=== PATIENT | male | born 1950 | race Caucasian/White ===

== ENCOUNTER 2017-08-25 08:33 | Outpatient (CLI) | payer MEDICARE ==
--- NOTE | 2017-08-25 10:47 | CT ---
CT CHEST WITHOUT CONTRAST: Comparison: 05-02-16 History: Bronchiectasis with acute exacerbation. Technique: Noncontrast chest CT is performed in the axial plane. Coronal reformatted images are submi tted for interpretation. FINDINGS: Limited evaluation of the mediastinum due to lack of IV contrast. Calcified mediastinal lymph nodes a re again demonstrated. There are coronary artery calcifications. Heart size is normal. No significant pericardial fluid. The thoracic and abdominal aorta are of normal caliber. No periaortic fat strandi ng. Visualized upper solid organs are grossly unremarkable, with the exception of the left adrenal gland. There is interval development of a 1.5 cm nodule with an attenuation coefficient of 2 Houns[place] uni ts, compatible with a benign adenoma. Trachea and central bronchi are patent. Consolidation with air bronchograms in the right lower lobe i s noted. No suspicious masses. No pleural effusion. No pneumothorax. Minimal scarring in the left devyn g base. Stable sclerotic focus with trabeculation in the thoracic spine at the C6 level compatible with heman gioma. IMPRESSION: 1. Persistent consolidation in the right lower lobe. Given chronicity, area of scarring is favored. 2. Interval development of a benign adenoma of the left adrenal gland. POS: [facility]
== END 2017-08-25 08:34 | disposition home or self-care (01) ==
LOC: SCSCT 08:33
PROVIDERS: ATTEND Family Medicine
DX: J47.1 Bronchiectasis with (acute) exacerbation (principal); D35.02 Benign neoplasm of left adrenal gland; R91.8 Other nonspecific abnormal finding of lung field
CPT/HCPCS: 71250

== ENCOUNTER 2017-11-30 19:30 | Outpatient (CLI) | payer MEDICARE | END 2017-11-30 19:31 | disposition home or self-care (01) | LOC: SLEEPLAB 19:30 | PROVIDERS: ATTEND Family Medicine | DX: G47.33 Obstructive sleep apnea (adult) (pediatric) (principal); R53.83 Other fatigue; I25.10 Atherosclerotic heart disease of native coronary artery without angina pectoris; R06.83 Snoring; I51.9 Heart disease, unspecified; E66.9 Obesity, unspecified; G47.00 Insomnia, unspecified; G47.10 Hypersomnia, unspecified | CPT/HCPCS: 95810 ==

== ENCOUNTER 2017-12-11 20:30 | Outpatient (CLI) | payer MEDICARE | END 2017-12-11 20:31 | disposition home or self-care (01) | LOC: SLEEPLAB 20:30 | PROVIDERS: ATTEND Family Medicine | DX: G47.33 Obstructive sleep apnea (adult) (pediatric) (principal); I25.10 Atherosclerotic heart disease of native coronary artery without angina pectoris; I50.9 Heart failure, unspecified; R06.83 Snoring; E66.9 Obesity, unspecified; Z68.34 Body mass index [BMI] 34.0-34.9, adult | CPT/HCPCS: 95811 ==

== ENCOUNTER 2017-12-25 09:09 | Outpatient (CLI) | payer MEDICARE ==
--- NOTE | 2017-12-25 11:00 | RAD ---
TWO VIEWS CHEST: Comparison: 06-01-15 History: Dyspnea. FINDINGS: Two views of the chest shows a normal sized cardiomediastinal silhouette. There is stable elevation o f the right hemidiaphragm. There is no evidence of consolidation, mass, or pleural effusion. Degenera tive changes are seen in the spine. There are calcified right hilar and mediastinal lymph nodes. IMPRESSION: No evidence of acute cardiopulmonary disease. POS: [facility]
== END 2017-12-25 09:10 | disposition home or self-care (01) ==
LOC: RAD 09:09
PROVIDERS: ATTEND Internal Medicine Critical Care Medicine
DX: R06.00 Dyspnea, unspecified (principal)
CPT/HCPCS: 71046

== ENCOUNTER 2017-12-25 11:53 | Outpatient (CLI) | payer MEDICARE ==
--- NOTE | 2017-12-25 14:32 | NM ---
NUCLEAR MEDICINE VQ SCAN: History: Pulmonary embolism without core pulmonale. Technique: A VQ scan was performed in standard fashion. Ventilation images were obtained using 10.3 m Ci Xenon 133. Perfusion images were obtained using 6 mCi Technetium 99M MAA. FINDINGS: Ventilation: Breath hold, equilibrium, and washout phases are normal. No air trapping is seen. No ventilatory defe cts are present. Perfusion: No small, medium, or large perfusion defects are seen. IMPRESSION: Normal VQ scan. POS: [facility]
== END 2017-12-25 11:54 | disposition home or self-care (01) ==
LOC: NM 11:53
PROVIDERS: ATTEND Internal Medicine Critical Care Medicine
DX: I26.99 Other pulmonary embolism without acute cor pulmonale (principal)
CPT/HCPCS: 78582; A9540; A9558

== ENCOUNTER 2018-11-14 14:22 | Outpatient (CLI) | payer MEDICARE ==
--- NOTE | 2018-11-14 15:56 | MRI ---
MRI CERVICAL SPINE: 11/14/18 Multiplanar and multisequential imaging cervical spine obtained. INDICATIONS: Degenerative cervical disc disease. Neck pain. FINDINGS: The cervical vertebrae maintain normal height and alignment. Vertebral body signal appears normal. Th ere is mild loss of disc space seen at C4-5, C5-6 and C6-7 levels. Very mild degenerative spurring is noted. No significant abnormality at C2-3. C3-4, mild disc bulge with spondylosis flattening the thecal sac; however, the anterior subarachnoid space is preserved. No foraminal stenosis. C4-5, mild disc bulge and spondylosis flatten the thecal sac. Anterior subarachnoid space is preserve d. No cord impingement or significant foraminal stenosis. At C5-6, loss of disc space with degenerative change. Posterior disc bulge and spondylosis flatten th e thecal sac. No cord impingement. There may be mild foraminal encroachment at this level due to unci stacy hypertrophy. At C6-7, there is evidence of a large central disc protrusion which abuts the anterior cord. Bilatera l foraminal stenosis more prominent on the left due to uncinate hypertrophy. The cord signal is normal. No evidence of myelomalacia or edema. IMPRESSION: 1. Prominent disc protrusion with spondylosis at C6-7 impinges on the anterior cord. 2. Mild disc bulge and spondylosis at C3-4, C4-5, and C5-6 as described. POS: [facility]
== END 2018-11-14 14:23 | disposition home or self-care (01) ==
LOC: SCSMRI 14:22
PROVIDERS: ATTEND Nurse Practitioner Family
DX: M50.30 Other cervical disc degeneration, unspecified cervical region (principal); M50.223 Other cervical disc displacement at C6-C7 level; M47.812 Spondylosis without myelopathy or radiculopathy, cervical region
CPT/HCPCS: 72141

== ENCOUNTER 2020-11-23 09:04 | Outpatient (CLI) | payer MEDICARE ==
[2020-11-23 11:15] LABS: #Eosinphils 0.1 10x3/uL (0.0-0.5); #Monocytes 0.7 10x3/uL (0.0-1.1); #Neutrophils 3.3 10x3/uL (1.5-8.4); %Basophils 0.2 % (0.0-2.0); %Eosinophils 2.5 % (0.0-6.0); %Lymphocytes 21.3 % (18.0-47.0); %Monocytes 13.6 % (0.0-10.0); %Neutrophils 62.2 % (40.0-75.0); Hemoglobin 14.5 g/dL (13.5-17.5); Mean Corpuscular HGB CONC 34.5 g/dL (32.0-36.0); Mean Corpuscular Hemoglobin 33.3 pg (27.0-33.0); Mean Corpuscular Volume 96.6 fl (81.2-95.1); Mean Platelet Volume 9.4 fl (7.4-10.4); Platelet Count 219 10x3/uL (150-450); RBC Distribution Width 12.9 % (11.5-14.5); Red Blood Cell (RBC) Count 4.35 10x6/uL (4.32-5.72); White Blood Cell (WBC) Count 5.2 10x3/uL (3.5-10.5)
[2020-11-23 11:25] LABS: Anion Gap 11 mmol/L (10-20); BUN (Urea Nitrogen) 13 mg/dL (8.4-25.7); Calc. Creatinine Clearance 0 mL/min (70-130); Carbon Dioxide 30 mmol/L (23-31); Chloride 98 mmol/L (98-107); Glucose 110 mg/dL (83-110); Potassium 4.7 mmol/L (3.5-5.1); Sodium 134 mmol/L (136-145)
[2020-11-23 18:20] LABS: SARS-CoV-2 PCR by NAA Not Detected (NotDetected)
== END 2020-11-23 09:05 | disposition home or self-care (01) ==
LOC: LABBT 09:04
PROVIDERS: ATTEND Surgery
DX: Z01.818 Encounter for other preprocedural examination (principal); K40.90 Unilateral inguinal hernia, without obstruction or gangrene, not specified as recurrent; Z20.822 Contact with and (suspected) exposure to COVID-19
CPT/HCPCS: 80048; 85025; 93005; U0003; U0005; 87635; 93010

== ENCOUNTER 2020-11-25 09:04 | Day surgery (SDC) | payer MEDICARE ==
[2020-11-24 14:19] VITALS: BMI 29.0
[2020-11-25] MEDS ORDERED: Levofloxacin 500 mg/D5W 100 ml Premix Bag ONE (09:32)
[2020-11-25] MEDS ORDERED: Bupivacaine 0.25% HCL 30 ML VIAL ONE (10:57)
[2020-11-25] MEDS ORDERED: Lidocaine 2% w/Epinephrine 1:200K 20 ML VIAL ONE (10:57)
[2020-11-25] MEDS ORDERED: Calcium Chloride 1 GM/10 ML Abboject SYRINGE ONE (11:10)
[2020-11-25] MEDS ORDERED: PHENYLEPHRINE-NS 100 MCG/ML 10 ML SYRINGE ONE (11:10)
[2020-11-25] MEDS ORDERED: Ketorolac Tromethamine 30 MG/ML VIAL ONE ×2 (11:10→14:28)
[2020-11-25] MEDS ORDERED: PROPOFOL 200 MG/20 ML VIAL ONE (11:10)
[2020-11-25] MEDS ORDERED: Lidocaine 1% PF 5 ML VIAL ONE (11:10)
[2020-11-25] MEDS ORDERED: Glycopyrrolate 0.2 MG/ML 5 ML SYRINGE ONE (11:10)
[2020-11-25] MEDS ORDERED: Dexamethasone 20 MG/5 ML VIAL ONE (11:10)
[2020-11-25] MEDS ORDERED: Fentanyl 100 MCG/2 ML VIAL ONE (11:11)
[2020-11-25] MEDS ORDERED: Famotidine/PF 20 mg/2ml Vial ONE (14:28)
== END 2020-11-25 16:15 | disposition home or self-care (01) ==
LOC: SDC 09:04
PROVIDERS: ATTEND Surgery
PROC: 0YU70JZ Supplement Right Femoral Region with Synthetic Substitute, Open Approach (ICD-10-PCS; principal; 2020-11-25)
DX: K41.31 Unilateral femoral hernia, with obstruction, without gangrene, recurrent (principal); I11.9 Hypertensive heart disease without heart failure; J30.81 Allergic rhinitis due to animal (cat) (dog) hair and dander; Z85.46 Personal history of malignant neoplasm of prostate; Z79.02 Long term (current) use of antithrombotics/antiplatelets; Z79.82 Long term (current) use of aspirin; Z79.899 Other long term (current) drug therapy; Z88.0 Allergy status to penicillin; Z95.5 Presence of coronary angioplasty implant and graft
CPT/HCPCS: C1781; J1100; J1885; J1956; J2704; J3010; S0020; S0028

== ENCOUNTER 2020-11-27 14:35 | Emergency (ER) | payer MEDICARE ==
[2020-11-27] MEDS ORDERED: HYDROcodone/Acetaminophen 5/325 mg Tablet ONE (16:40)
== END 2020-11-27 17:13 | disposition home or self-care (01) ==
LOC: ERS 14:35
DX: T81.31XA Disruption of external operation (surgical) wound, not elsewhere classified, initial encounter (principal); L76.32 Postprocedural hematoma of skin and subcutaneous tissue following other procedure; E78.5 Hyperlipidemia, unspecified; I10 Essential (primary) hypertension
CPT/HCPCS: 99283

== ENCOUNTER 2020-12-01 11:49 | Day surgery (SDC) | payer MEDICARE ==
[2020-11-30 16:02] VITALS: BMI 29.0
[2020-12-01] MEDS ORDERED: Levofloxacin 500 mg/D5W 100 ml Premix Bag ONE (12:18)
[2020-12-01] MEDS ORDERED: Fentanyl 100 MCG/2 ML VIAL ONE (12:29)
[2020-12-01] MEDS ORDERED: PHENYLEPHRINE-NS 100 MCG/ML 10 ML SYRINGE ONE (13:20)
[2020-12-01] MEDS ORDERED: ePHEDrine Sulfate 50 MG/10 ML VIAL ONE (13:20)
[2020-12-01] MEDS ORDERED: Dexamethasone 20 MG/5 ML VIAL ONE (13:20)
[2020-12-01] MEDS ORDERED: Ondansetron PF 4 MG/2 ML Vial ONE (13:20)
[2020-12-01] MEDS ORDERED: PROPOFOL 200 MG/20 ML VIAL ONE (13:20)
[2020-12-01] MEDS ORDERED: Lidocaine 1% PF 5 ML VIAL ONE (13:20)
[2020-12-01] MEDS ORDERED: Bupivacaine PF 0.5% 30 ML VIAL ONE (13:49)
== END 2020-12-01 15:47 | disposition home or self-care (01) ==
LOC: SDC 11:49
PROVIDERS: ATTEND Surgery
PROC: 07L Lymphatic and Hemic Systems, Occlusion (ICD-10-PCS; principal; 2020-12-01)
DX: I89.8 Other specified noninfective disorders of lymphatic vessels and lymph nodes (principal); Z79.02 Long term (current) use of antithrombotics/antiplatelets; Z79.82 Long term (current) use of aspirin; Z79.899 Other long term (current) drug therapy; Z88.0 Allergy status to penicillin; Z88.8 Allergy status to other drugs, medicaments and biological substances
CPT/HCPCS: 87070; 87205; J1100; J1956; J2405; J2704; J3010; S0020

== ENCOUNTER 2021-06-20 18:37 | Inpatient (IN) | payer MEDICARE, OTHER ==
[~2021-06-20 18:37] MED LIST: Iopamidol-370 76% 500 ML 1 ML ONE
[2021-06-20 19:04] LABS: #Eosinphils 0.1 thou/uL (0.0-0.7); #Lymphocytes 0.8 thou/uL (1.20-3.40); #Monocytes 1.4 thou/uL (0.11-0.59); #Neutrophils 14.4 thou/uL (1.40-6.50); %Eosinophils 0.4 % (0.0-10.0); %Lymphocytes 5.1 % (21.0-51.0); %Monocytes 8.3 % (0.0-10.0); %Neutrophils 86.2 % (42.0-75.0); Hemoglobin 16.7 g/dL (14.0-18.0); Mean Corpuscular HGB CONC 35.1 g/dL (32.0-36.0); Mean Corpuscular Hemoglobin 35.1 pg (27.0-31.0); Mean Platelet Volume 6.9 fL (7.4-10.4); Platelet Count 272 thou/uL (130-400); RBC Distribution Width 13.5 % (11.5-14.5); Red Blood Cell (RBC) Count 4.75 mill/uL (4.70-6.10); White Blood Cell (WBC) Count 16.7 thou/uL (4.8-10.8)
[2021-06-20] MEDS ORDERED: Ondansetron PF 4 MG/2 ML Vial ONE ×2 (19:13→21:55)
[2021-06-20] MEDS ORDERED: Morphine 4 MG/ML VIAL ONE (19:13)
[2021-06-20 19:24] LABS: ALT (SGPT) 33 U/L (8-55); AST (SGOT) 32 U/L (5-34); Albumin 4.1 g/dL (3.4-4.8); Alkaline Phosphatase 68 U/L (40-110); Anion Gap 15 mmol/L (10-20); BUN (Urea Nitrogen) 16 mg/dL (8.4-25.7); Bilirubin, Total 1.4 mg/dL (0.2-1.2); Calc. Creatinine Clearance 0 mL/min (70-130); Calcium 9.7 mg/dL (7.8-10.44); Carbon Dioxide 27 mmol/L (23-31); Chloride 94 mmol/L (98-107); Glucose 126 mg/dL (83-110); Protein, Total 7.1 g/dL (5.8-8.1); Sodium 131 mmol/L (136-145)
[2021-06-20] MEDS ORDERED: Succinylcholine 200 MG/10 ml SYRINGE FS ONE (21:55)
[2021-06-20] MEDS ORDERED: Dexamethasone 20 MG/5 ML VIAL ONE (21:55)
[2021-06-20] MEDS ORDERED: Rocuronium Bromide 10 MG/ML (10ML VIAL) ONE (21:55)
[2021-06-20] MEDS ORDERED: PHENYLEPHRINE-NS 100 MCG/ML 10 ML SYRINGE ONE (21:55)
[2021-06-20] MEDS ORDERED: PROPOFOL 200 MG/20 ML VIAL ONE (21:55)
[2021-06-20] MEDS ORDERED: Lidocaine 1% PF 5 ML VIAL ONE (21:55)
[2021-06-20] MEDS ORDERED: Glycopyrrolate 0.2 MG/ML 5 ML SYRINGE ONE (21:55)
[2021-06-20] MEDS ORDERED: ePHEDrine 50 MG/ML VIAL ONE (21:55)
[2021-06-20] MEDS ORDERED: Fentanyl 250 MCG/5 ML VIAL ONE (22:01)
[2021-06-20] MEDS ORDERED: Midazolam HCl 2 mg/2 ml Vial ONE (22:01)
[2021-06-20 22:09] LABS: SARS-CoV-2 NAA Rapid Test Not Detected (NotDetected)
[2021-06-21] MEDS ORDERED: Dextrose 50% Abboject 50 ML SYRINGE SLOW IVP PRN (00:36)
[2021-06-21] MEDS ORDERED: Dextrose 5% in Water 1,000 ML IV PRN (00:36)
[2021-06-21] MEDS ORDERED: hydrALAZINE 20 MG/ML VIAL SLOW IVP PRN (00:36)
[2021-06-21] MEDS ORDERED: Ondansetron PF 4 MG/2 ML Vial IVP PRN (00:36)
[2021-06-21] MEDS ORDERED: Promethazine HCl 25 MG/ML VIAL IM PRN ×2 (00:36→00:49)
[2021-06-21] MEDS ORDERED: Mag-Al 1200 mg/1200 mg/30 ML UDCUP PO PRN (00:36)
[2021-06-21] MEDS ORDERED: Calcium Carbonate 500 MG ChewTAB PO PRN (00:36)
[2021-06-21] MEDS ORDERED: Morphine 4 MG/ML VIAL SLOW IVP PRN (00:45)
[2021-06-21] MEDS ORDERED: Ondansetron HCl/PF 4 MG/2 ML Vial IVP PRN (00:49)
[2021-06-21] MEDS ORDERED: Promethazine HCl 25 MG/ML VIAL IVPB PRN (00:49)
[2021-06-21] MEDS: D5 1/2 NS w/20 mEq KCL 1,000 ML IV SCH ×3 (02:17→18:49)
[2021-06-21] MEDS: HYDROcodone/Acetaminophen 10/325 mg Tablet PO PRN ×2 (02:17→20:57)
[2021-06-21 02:55] VITALS: BMI 27.7
[2021-06-21] MEDS: Ketorolac Tromethamine 30 MG/ML VIAL IVP SCH ×3 (06:07→18:35)
[2021-06-21 06:33] LABS: Hemoglobin 14.8 g/dL (14.0-18.0); Mean Corpuscular HGB CONC 34.7 g/dL (32.0-36.0); Mean Corpuscular Hemoglobin 34.7 pg (27.0-31.0); Mean Platelet Volume 6.9 fL (7.4-10.4); Platelet Count 246 thou/uL (130-400); RBC Distribution Width 13.4 % (11.5-14.5); Red Blood Cell (RBC) Count 4.25 mill/uL (4.70-6.10); White Blood Cell (WBC) Count 13.4 thou/uL (4.8-10.8)
[2021-06-21 06:51] LABS: ALT (SGPT) 27 U/L (8-55); AST (SGOT) 23 U/L (5-34); Albumin 3.4 g/dL (3.4-4.8); Alkaline Phosphatase 51 U/L (40-110); Anion Gap 12 mmol/L (10-20); BUN (Urea Nitrogen) 17 mg/dL (8.4-25.7); Bilirubin, Total 1.1 mg/dL (0.2-1.2); Calc. Creatinine Clearance 98 mL/min (70-130); Calcium 8.3 mg/dL (7.8-10.44); Carbon Dioxide 25 mmol/L (23-31); Chloride 98 mmol/L (98-107); Globulin 2.1 g/dL (2.4-3.5); Glucose 176 mg/dL (83-110); Potassium 5.1 mmol/L (3.5-5.1); Protein, Total 5.5 g/dL (5.8-8.1); Sodium 130 mmol/L (136-145)
[2021-06-21 06:58] LABS: Band 23 % (5-11); Lymphocytes 1 % (21-51); MDiff Complete? YES; Neutrophil 75 % (42-75); Platelet Morphology Comment Appears Adequate; RBC Morphology Normal; Reactive Lymphocytes 1 % (0-10)
[2021-06-21] MEDS: Famotidine 20 MG TAB PO SCH ×2 (08:24→20:54)
[2021-06-21] MEDS: Metoprolol Tartrate 25 MG TAB PO SCH ×2 (08:40→20:54)
[2021-06-21] MEDS: Famotidine/PF 20 mg/2ml Vial SLOW IVP SCH ×2 (08:40→21:01)
[2021-06-21] MEDS: Enoxaparin Sodium 40 MG/0.4 ML SYRINGE SC SCH (10:22)
[2021-06-21] MEDS ORDERED: Polyethylene Glycol 3350 17 GM Packet PO SCH (10:30)
[2021-06-22] MEDS: Ketorolac Tromethamine 30 MG/ML VIAL IVP SCH ×3 (00:13→12:00)
[2021-06-22] MEDS: D5 1/2 NS w/20 mEq KCL 1,000 ML IV SCH ×2 (03:05→11:52)
[2021-06-22] MEDS: Metoprolol Tartrate 25 MG TAB PO SCH (08:17)
[2021-06-22] MEDS: Famotidine 20 MG TAB PO SCH (08:17)
[2021-06-22] MEDS: Enoxaparin Sodium 40 MG/0.4 ML SYRINGE SC SCH (08:37)
[2021-06-22] MEDS ORDERED: Polyethylene Glycol 3350 17 GM Packet PO SCH (09:00)
[2021-06-22] MEDS: Famotidine/PF 20 mg/2ml Vial SLOW IVP SCH (10:28)
[2021-06-22 11:55] VITALS: BP 136/74; TEMP 97.7
== END 2021-06-22 12:54 | disposition home or self-care (01) | DRG 354 ==
LOC: ERS 18:37 → SDC/OP 22:44 → SURG A 06-21 00:36
PROVIDERS: ADMIT Surgery; ATTEND Surgery
PROC: 0WQF0ZZ Repair Abdominal Wall, Open Approach (ICD-10-PCS; principal; 2021-06-20)
DX: K43.0 Incisional hernia with obstruction, without gangrene (principal); K55.9 Vascular disorder of intestine, unspecified; Z20.822 Contact with and (suspected) exposure to COVID-19; K59.00 Constipation, unspecified; E78.5 Hyperlipidemia, unspecified; I10 Essential (primary) hypertension; R63.0 Anorexia; I25.10 Atherosclerotic heart disease of native coronary artery without angina pectoris; Z88.0 Allergy status to penicillin; Z91.048 Other nonmedicinal substance allergy status; Z95.5 Presence of coronary angioplasty implant and graft; Z68.27 Body mass index [BMI] 27.0-27.9, adult; Z85.46 Personal history of malignant neoplasm of prostate
CPT/HCPCS: 36415; 74177; 80053; 83605; 83690; 85025; 96365; 96366; 96375; J1100; J1650; J1885; J1956; J2250; J2270; J2405; J2704; J3010; J3480; J3490; Q9967; S0028; U0002

== ENCOUNTER 2021-07-19 10:10 | Outpatient (CLI) | payer MEDICARE ==
[2020-11-30 16:51] LABS: ALT (SGPT) 39 U/L (8-55); AST (SGOT) 30 U/L (5-34); Albumin 4.2 g/dL (3.4-4.8); Alkaline Phosphatase 60 U/L (40-110); Anion Gap 13 mmol/L (10-20); BUN (Urea Nitrogen) 13 mg/dL (8.4-25.7); Calc. Creatinine Clearance 0 mL/min (70-130); Calcium 9.4 mg/dL (7.8-10.44); Carbon Dioxide 31 mmol/L (23-31); Chloride 95 mmol/L (98-107); Globulin 2.3 g/dL (2.4-3.5); Glucose 115 mg/dL (83-110); Potassium 4.7 mmol/L (3.5-5.1); Protein, Total 6.5 g/dL (5.8-8.1); Sodium 134 mmol/L (136-145)
[2020-11-30 16:55] LABS: #Eosinphils 0.2 10x3/uL (0.0-0.5); #Monocytes 0.8 10x3/uL (0.0-1.1); #Neutrophils 3.7 10x3/uL (1.5-8.4); %Basophils 0.5 % (0.0-2.0); %Eosinophils 2.5 % (0.0-6.0); %Lymphocytes 22.5 % (18.0-47.0); %Monocytes 13.1 % (0.0-10.0); %Neutrophils 61.1 % (40.0-75.0); Hemoglobin 14.3 g/dL (13.5-17.5); Mean Corpuscular HGB CONC 34.8 g/dL (32.0-36.0); Mean Corpuscular Hemoglobin 33.3 pg (27.0-33.0); Mean Corpuscular Volume 95.8 fl (81.2-95.1); Mean Platelet Volume 9.6 fl (7.4-10.4); Platelet Count 277 10x3/uL (150-450); RBC Distribution Width 13.2 % (11.5-14.5); Red Blood Cell (RBC) Count 4.29 10x6/uL (4.32-5.72)
[2020-12-01 02:11] LABS: SARS-CoV-2 PCR by NAA Not Detected (NotDetected)
== END 2021-07-19 10:11 | disposition home or self-care (01) ==
LOC: RAD 10:10
PROVIDERS: ATTEND Internal Medicine Critical Care Medicine
DX: R06.00 Dyspnea, unspecified (principal)
CPT/HCPCS: 71046; 80053; 85025; U0003; U0005

== ENCOUNTER 2021-11-18 07:06 | Inpatient (IN) | payer MEDICARE ==
[2021-11-18] MEDS ORDERED: Fentanyl 100 MCG/2 ML VIAL ONE ×3 (08:36→12:22)
[2021-11-18] MEDS ORDERED: Bupivacaine 0.25% 10 ML VIAL ONE (08:37)
[2021-11-18] MEDS ORDERED: Lidocaine 1% w/Epinephrine 1:100K 30 ML VIAL ONE (08:37)
[2021-11-18] MEDS ORDERED: Levofloxacin 500 mg/D5W 100 ml Premix Bag ONE (08:52)
[2021-11-18] MEDS ORDERED: Dexamethasone 20 MG/5 ML VIAL ONE (08:58)
[2021-11-18] MEDS ORDERED: Lidocaine 1% PF 5 ML VIAL ONE (08:58)
[2021-11-18] MEDS ORDERED: Glycopyrrolate 0.2 MG/ML 5 ML SYRINGE ONE (08:58)
[2021-11-18] MEDS ORDERED: Rocuronium Bromide 10 MG/ML (10ML VIAL) ONE (08:58)
[2021-11-18] MEDS ORDERED: PROPOFOL 200 MG/20 ML VIAL ONE (08:58)
[2021-11-18] MEDS ORDERED: PHENYLEPHRINE-NS 100 MCG/ML 10 ML SYRINGE ONE (08:58)
[2021-11-18] MEDS ORDERED: Ondansetron PF 4 MG/2 ML Vial ONE (08:58)
[2021-11-18] MEDS ORDERED: ePHEDrine 50 MG/ML VIAL ONE (08:58)
[2021-11-18] MEDS ORDERED: Ondansetron PF 4 MG/2 ML Vial IVP PRN ×2 (11:20→12:30)
[2021-11-18] MEDS ORDERED: Promethazine HCl 25 MG/ML VIAL IM PRN ×3 (11:20→12:30)
[2021-11-18] MEDS ORDERED: HYDROmorphone 0.5 MG/0.5 ML SYRINGE ONE ×4 (11:35→12:21)
[2021-11-18] MEDS ORDERED: HYDROmorphone 2 MG/ML VIAL SLOW IVP PRN (11:37)
[2021-11-18] MEDS ORDERED: Ondansetron HCl/PF 4 MG/2 ML Vial IVP PRN (11:37)
[2021-11-18] MEDS ORDERED: Ketorolac Tromethamine 30 MG/ML VIAL IVP PRN (11:37)
[2021-11-18] MEDS ORDERED: ePHEDrine Sulfate 50 MG/10 ML VIAL SLOW IVP PRN (11:37)
[2021-11-18] MEDS ORDERED: Promethazine HCl 25 MG/ML VIAL IVPB PRN (11:37)
[2021-11-18] MEDS ORDERED: diphenhydrAMINE 50 MG/ML VIAL IM/IV PRN (12:30)
[2021-11-18] MEDS ORDERED: Fentanyl CADD 100 ML IVPB SCH (12:30)
[2021-11-18] MEDS ORDERED: diphenhydrAMINE 25 MG CAP PO PRN (12:30)
[2021-11-18] MEDS ORDERED: Naloxone HCl 0.4 mg/ml Vial IV PRN (12:30)
[2021-11-18] MEDS ORDERED: Clindamycin/D5W 900 mg/50 ml Premix Bag ONE (14:17)
[2021-11-18] MEDS: Clindamycin/D5W 900 MG in Premix Bag 1 BAG IVPB SCH ×2 (14:19→17:21)
[2021-11-18 15:17] VITALS: BMI 28.2
[2021-11-18] MEDS: Sodium Chloride 0.9% 1,000 ML IV SCH ×2 (15:35→21:11)
[2021-11-18] MEDS: Famotidine 20 MG TAB PO SCH (21:12)
[2021-11-18] MEDS: Famotidine/PF 20 mg/2ml Vial SLOW IVP SCH (21:12)
[2021-11-19] MEDS: Sodium Chloride 0.9% 1,000 ML IV SCH ×3 (05:16→22:55)
[2021-11-19 05:37] LABS: #Lymphocytes 0.9 thou/uL (1.20-3.40); #Monocytes 1.4 thou/uL (0.11-0.59); #Neutrophils 12.3 thou/uL (1.40-6.50); %Basophils 0.1 % (0.0-1.0); %Eosinophils 0.1 % (0.0-10.0); %Lymphocytes 6.3 % (21.0-51.0); %Monocytes 9.7 % (0.0-10.0); %Neutrophils 83.7 % (42.0-75.0); Hemoglobin 13.9 g/dL (14.0-18.0); Mean Corpuscular HGB CONC 32.7 g/dL (32.0-36.0); Mean Corpuscular Hemoglobin 33.9 pg (27.0-31.0); Platelet Count 222 thou/uL (130-400); Red Blood Cell (RBC) Count 4.09 mill/uL (4.70-6.10); White Blood Cell (WBC) Count 14.7 thou/uL (4.8-10.8)
[2021-11-19 05:53] LABS: Anion Gap 11 mmol/L (10-20); BUN (Urea Nitrogen) 13 mg/dL (8.4-25.7); Calc. Creatinine Clearance 113 mL/min (70-130); Calcium 8.8 mg/dL (7.8-10.44); Carbon Dioxide 29 mmol/L (23-31); Chloride 96 mmol/L (98-107); Glucose 142 mg/dL (83-110); Potassium 5.1 mmol/L (3.5-5.1); Sodium 131 mmol/L (136-145)
[2021-11-19] MEDS: Enoxaparin Sodium 40 MG/0.4 ML SYRINGE SC SCH (09:34)
[2021-11-19] MEDS: Famotidine/PF 20 mg/2ml Vial SLOW IVP SCH ×2 (09:34→20:49)
[2021-11-19] MEDS: Famotidine 20 MG TAB PO SCH ×2 (10:34→20:48)
[2021-11-19] MEDS: Acetaminophen 325 MG TAB PO SCH ×3 (13:13→23:54)
[2021-11-19] MEDS: Zolpidem Tartrate 5 MG TAB PO PRN (20:54)
[2021-11-20] MEDS: Acetaminophen 325 MG TAB PO SCH ×4 (05:04→23:58)
[2021-11-20] MEDS: Sodium Chloride 0.9% 1,000 ML IV SCH ×2 (06:49→14:54)
[2021-11-20] MEDS: Enoxaparin Sodium 40 MG/0.4 ML SYRINGE SC SCH (08:02)
[2021-11-20] MEDS: hydrALAZINE 20 MG/ML VIAL SLOW IVP PRN (08:03)
[2021-11-20] MEDS: Famotidine 20 MG TAB PO SCH ×2 (08:03→21:04)
[2021-11-20] MEDS: Metoprolol Tartrate 25 MG TAB PO SCH ×2 (09:43→21:06)
[2021-11-20] MEDS: Lisinopril 20 MG TAB PO SCH ×2 (09:44→21:10)
[2021-11-20] MEDS: Famotidine/PF 20 mg/2ml Vial SLOW IVP SCH ×2 (09:46→21:06)
[2021-11-20] MEDS ORDERED: Furosemide 20 MG/2 ML VIAL SLOW IVP SCH ×2 (15:30→19:00)
[2021-11-20] MEDS ORDERED: methylPREDNISolone Sod Succ/PF 125 MG/2 ML VIAL IVP SCH (15:30)
[2021-11-20] MEDS ORDERED: Sodium Chloride 0.9% 1,000 ML IV SCH (15:31)
[2021-11-20] MEDS ORDERED: Magnesium 2 GM/50 ML(in water) 2 GM in Premix Bag 1 BAG IVPB SCH (15:45)
[2021-11-20] MEDS ORDERED: guaiFENesin/DM ER PO SCH (15:45)
[2021-11-20 15:58] LABS: #Eosinphils 0.1 thou/uL (0.0-0.7); #Monocytes 1.3 thou/uL (0.11-0.59); #Neutrophils 9.5 thou/uL (1.40-6.50); %Basophils 0.2 % (0.0-1.0); %Lymphocytes 8.1 % (21.0-51.0); %Neutrophils 79.7 % (42.0-75.0); Hemoglobin 14.5 g/dL (14.0-18.0); Mean Corpuscular HGB CONC 31.8 g/dL (32.0-36.0); Mean Corpuscular Hemoglobin 33.2 pg (27.0-31.0); Platelet Count 226 thou/uL (130-400); RBC Distribution Width 13.1 % (11.5-14.5); Red Blood Cell (RBC) Count 4.38 mill/uL (4.70-6.10); White Blood Cell (WBC) Count 11.9 thou/uL (4.8-10.8)
[2021-11-20] MEDS: rOPINIRole HCl 0.5 MG TAB PO PRN (17:45)
[2021-11-20] MEDS: Mometasone 200 MCG/Formoterol 5 MCG 120 PUFF INHALER INH SCH (20:16)
[2021-11-20] MEDS: Atorvastatin Calcium 40 MG TAB PO SCH (21:04)
[2021-11-20] MEDS: Zolpidem Tartrate 5 MG TAB PO PRN (21:09)
[2021-11-20] MEDS: guaiFENesin/DM ER PO SCH (21:10)
[2021-11-21] MEDS: Acetaminophen 325 MG TAB PO SCH ×3 (05:28→17:13)
[2021-11-21] MEDS: Furosemide 20 MG/2 ML VIAL SLOW IVP SCH ×2 (05:29→14:53)
[2021-11-21] MEDS: hydrALAZINE 20 MG/ML VIAL SLOW IVP PRN (05:29)
[2021-11-21 06:10] LABS: #Lymphocytes 0.5 thou/uL (1.20-3.40); #Monocytes 0.3 thou/uL (0.11-0.59); #Neutrophils 6.2 thou/uL (1.40-6.50); %Eosinophils 0.2 % (0.0-10.0); %Lymphocytes 7.1 % (21.0-51.0); %Monocytes 4.1 % (0.0-10.0); %Neutrophils 88.6 % (42.0-75.0); Hemoglobin 15.1 g/dL (14.0-18.0); Mean Corpuscular HGB CONC 32.3 g/dL (32.0-36.0); Mean Corpuscular Hemoglobin 33.4 pg (27.0-31.0); Mean Platelet Volume 7.2 fL (7.4-10.4); Platelet Count 259 thou/uL (130-400); RBC Distribution Width 13.1 % (11.5-14.5); Red Blood Cell (RBC) Count 4.52 mill/uL (4.70-6.10)
[2021-11-21 06:27] LABS: ALT (SGPT) 31 U/L (8-55); AST (SGOT) 27 U/L (5-34); Albumin 3.9 g/dL (3.4-4.8); Alkaline Phosphatase 49 U/L (40-110); Anion Gap 16 mmol/L (10-20); BUN (Urea Nitrogen) 15 mg/dL (8.4-25.7); Bilirubin, Total 1.1 mg/dL (0.2-1.2); Calc. Creatinine Clearance 109 mL/min (70-130); Calcium 9.5 mg/dL (7.8-10.44); Carbon Dioxide 25 mmol/L (23-31); Chloride 96 mmol/L (98-107); Globulin 3.2 g/dL (2.4-3.5); Glucose 158 mg/dL (83-110); Magnesium 2.2 mg/dL (1.6-2.6); Potassium 4.8 mmol/L (3.5-5.1); Protein, Total 7.1 g/dL (5.8-8.1); Sodium 132 mmol/L (136-145)
[2021-11-21] MEDS: Mometasone 200 MCG/Formoterol 5 MCG 120 PUFF INHALER INH SCH ×2 (07:12→19:37)
[2021-11-21] MEDS: rOPINIRole HCl 0.5 MG TAB PO PRN ×2 (09:08→21:13)
[2021-11-21] MEDS: Famotidine/PF 20 mg/2ml Vial SLOW IVP SCH ×2 (09:09→21:11)
[2021-11-21] MEDS: Famotidine 20 MG TAB PO SCH (09:12)
[2021-11-21] MEDS: guaiFENesin/DM ER PO SCH ×2 (09:13→21:20)
[2021-11-21] MEDS: Lisinopril 20 MG TAB PO SCH ×2 (09:13→21:14)
[2021-11-21] MEDS: Metoprolol Tartrate 25 MG TAB PO SCH ×2 (09:15→21:13)
[2021-11-21 09:27] LABS: Actual Bicarbonate (HCO3a) 25.9 mEq/L (22-28); Base Excess (BEa) 1.7 mEq/L (-2.0 to +3.0); CO2 Tension 39.5 mmHg (35.0-45.0); Calcium, Ionized (arterial) 1.19 mmol/L (1.12-1.30); Hemoglobin (Hb) 15.5 g/dL (14.0-18.0); Potassium - ABG Lab 4.07 mmol/L (3.70-5.30); pH, Arterial 7.44 (7.35-7.45)
[2021-11-21 09:34] LABS: ALV-art Gradient 95.465 mmHg (0-20); O2 Tension (PaO2), arterial 54.8 mmHg (> 70.0); Puncture Site RRA
[2021-11-21] MEDS ORDERED: Iopamidol-370 76% 500 ML 1 ML ONE (10:25)
[2021-11-21] MEDS: Enoxaparin Sodium 40 MG/0.4 ML SYRINGE SC SCH (11:01)
[2021-11-21] MEDS: Bisacodyl 10 MG SUPP PR PRN (11:04)
[2021-11-21] MEDS: Atorvastatin Calcium 40 MG TAB PO SCH (21:13)
[2021-11-21] MEDS: Zolpidem Tartrate 5 MG TAB PO PRN (22:33)
[2021-11-22] MEDS: Acetaminophen 325 MG TAB PO SCH ×4 (00:30→17:45)
[2021-11-22] MEDS: Bisacodyl 10 MG SUPP PR PRN (04:04)
[2021-11-22] MEDS: Furosemide 20 MG/2 ML VIAL SLOW IVP SCH (05:19)
[2021-11-22] MEDS: rOPINIRole HCl 0.5 MG TAB PO PRN (05:40)
[2021-11-22 06:08] LABS: #Monocytes 2.2 thou/uL (0.11-0.59); #Neutrophils 13.8 thou/uL (1.40-6.50); %Basophils 0.1 % (0.0-1.0); %Eosinophils 0.3 % (0.0-10.0); %Lymphocytes 5.7 % (21.0-51.0); %Monocytes 12.9 % (0.0-10.0); Hemoglobin 15.1 g/dL (14.0-18.0); Mean Corpuscular HGB CONC 34.4 g/dL (32.0-36.0); Mean Corpuscular Hemoglobin 35.5 pg (27.0-31.0); Platelet Count 253 thou/uL (130-400); Red Blood Cell (RBC) Count 4.25 mill/uL (4.70-6.10)
[2021-11-22 06:30] LABS: Anion Gap 15 mmol/L (10-20); BUN (Urea Nitrogen) 19 mg/dL (8.4-25.7); Calc. Creatinine Clearance 116 mL/min (70-130); Calcium 9.1 mg/dL (7.8-10.44); Carbon Dioxide 27 mmol/L (23-31); Chloride 96 mmol/L (98-107); Glucose 127 mg/dL (83-110); Sodium 134 mmol/L (136-145)
[2021-11-22] MEDS: Mometasone 200 MCG/Formoterol 5 MCG 120 PUFF INHALER INH SCH ×2 (06:57→19:08)
[2021-11-22] MEDS: Enoxaparin Sodium 40 MG/0.4 ML SYRINGE SC SCH (08:58)
[2021-11-22] MEDS: Famotidine/PF 20 mg/2ml Vial SLOW IVP SCH ×2 (08:58→21:09)
[2021-11-22] MEDS: Lisinopril 20 MG TAB PO SCH ×2 (08:59→21:10)
[2021-11-22] MEDS: Metoprolol Tartrate 25 MG TAB PO SCH ×2 (08:59→21:11)
[2021-11-22] MEDS: guaiFENesin/DM ER PO SCH ×2 (09:01→21:12)
[2021-11-22] MEDS: Atorvastatin Calcium 40 MG TAB PO SCH (21:10)
[2021-11-22] MEDS: Zolpidem Tartrate 5 MG TAB PO PRN (22:16)
[2021-11-23] MEDS: Acetaminophen 325 MG TAB PO SCH ×5 (01:39→23:53)
[2021-11-23 06:30] LABS: #Eosinphils 0.2 thou/uL (0.0-0.7); #Lymphocytes 0.8 thou/uL (1.20-3.40); #Monocytes 1.1 thou/uL (0.11-0.59); #Neutrophils 6.1 thou/uL (1.40-6.50); %Basophils 0.3 % (0.0-1.0); %Eosinophils 2.4 % (0.0-10.0); %Lymphocytes 9.5 % (21.0-51.0); %Monocytes 13.7 % (0.0-10.0); %Neutrophils 74.1 % (42.0-75.0); Hemoglobin 13.9 g/dL (14.0-18.0); Mean Corpuscular HGB CONC 32.7 g/dL (32.0-36.0); Mean Corpuscular Hemoglobin 34.1 pg (27.0-31.0); Mean Platelet Volume 6.8 fL (7.4-10.4); Platelet Count 212 thou/uL (130-400); Red Blood Cell (RBC) Count 4.07 mill/uL (4.70-6.10); White Blood Cell (WBC) Count 8.3 thou/uL (4.8-10.8)
[2021-11-23 06:48] LABS: Anion Gap 11 mmol/L (10-20); BUN (Urea Nitrogen) 17 mg/dL (8.4-25.7); Calc. Creatinine Clearance 122 mL/min (70-130); Calcium 8.6 mg/dL (7.8-10.44); Carbon Dioxide 33 mmol/L (23-31); Chloride 97 mmol/L (98-107); Glucose 96 mg/dL (83-110); Potassium 4.5 mmol/L (3.5-5.1); Sodium 136 mmol/L (136-145)
[2021-11-23] MEDS: Mometasone 200 MCG/Formoterol 5 MCG 120 PUFF INHALER INH SCH ×2 (07:11→19:06)
[2021-11-23] MEDS ORDERED: Morphine 4 MG/ML VIAL SLOW IVP PRN ×2 (08:09)
[2021-11-23] MEDS ORDERED: DC PCA Order Set 1 EACH FS ONE (08:09)
[2021-11-23] MEDS: Famotidine/PF 20 mg/2ml Vial SLOW IVP SCH (08:39)
[2021-11-23] MEDS: Lisinopril 20 MG TAB PO SCH ×2 (08:39→21:31)
[2021-11-23] MEDS: Enoxaparin Sodium 40 MG/0.4 ML SYRINGE SC SCH (08:40)
[2021-11-23] MEDS: Metoprolol Tartrate 25 MG TAB PO SCH ×2 (08:40→21:29)
[2021-11-23] MEDS: guaiFENesin/DM ER PO SCH ×2 (08:41→21:32)
[2021-11-23] MEDS: Famotidine 20 MG TAB PO SCH ×2 (08:42→21:30)
[2021-11-23] MEDS: Atorvastatin Calcium 40 MG TAB PO SCH (21:31)
[2021-11-23] MEDS: rOPINIRole HCl 0.5 MG TAB PO PRN (21:53)
[2021-11-24] MEDS: Famotidine/PF 20 mg/2ml Vial SLOW IVP SCH ×2 (00:54→08:20)
[2021-11-24] MEDS: Acetaminophen 325 MG TAB PO SCH ×2 (05:33→12:35)
[2021-11-24] MEDS: Famotidine 20 MG TAB PO SCH (08:20)
[2021-11-24] MEDS: Enoxaparin Sodium 40 MG/0.4 ML SYRINGE SC SCH (08:20)
[2021-11-24] MEDS: Metoprolol Tartrate 25 MG TAB PO SCH (08:21)
[2021-11-24] MEDS: Lisinopril 20 MG TAB PO SCH (08:21)
[2021-11-24] MEDS: guaiFENesin/DM ER PO SCH (08:24)
[2021-11-24] MEDS: Mometasone 200 MCG/Formoterol 5 MCG 120 PUFF INHALER INH SCH (10:44)
[2021-11-24 13:35] VITALS: TEMP 98
[2021-11-24] MEDS: hydrALAZINE 20 MG/ML VIAL SLOW IVP PRN (16:56)
[2021-11-24 17:30] VITALS: BP 158/80
== END 2021-11-24 17:50 | disposition home or self-care (01) | DRG 353 ==
LOC: SDC 07:06 → SURG A 11:21
PROVIDERS: ADMIT Surgery; ATTEND Surgery
PROC: 0WUF0JZ Supplement Abdominal Wall with Synthetic Substitute, Open Approach (ICD-10-PCS; principal; 2021-11-18)
PROC: 0WJF4ZZ Inspection of Abdominal Wall, Percutaneous Endoscopic Approach (ICD-10-PCS; 2021-11-18)
DX: K43.2 Incisional hernia without obstruction or gangrene (principal); J96.01 Acute respiratory failure with hypoxia; I50.31 Acute diastolic (congestive) heart failure; E87.1 Hypo-osmolality and hyponatremia; K56.7 Ileus, unspecified; J98.11 Atelectasis; K91.89 Other postprocedural complications and disorders of digestive system; Z20.822 Contact with and (suspected) exposure to COVID-19; I11.0 Hypertensive heart disease with heart failure; Z95.5 Presence of coronary angioplasty implant and graft; Z85.46 Personal history of malignant neoplasm of prostate; Z79.899 Other long term (current) drug therapy; Z88.0 Allergy status to penicillin; Z88.8 Allergy status to other drugs, medicaments and biological substances; R33.9 Retention of urine, unspecified; Z01.812 Encounter for preprocedural laboratory examination
CPT/HCPCS: 36415; 36600; 71045; 71275; 74018; 80048; 80053; 82805; 83735; 83880; 85025; 93005; 93010; 93306; 94640; 94664; C1781; J0360; J1100; J1170; J1650; J1940; J1956; J2405; J2704; J2930; J3010; J3475; J3490; J7050; J7620; Q9967; S0020; S0028; U0003; U0005

== ENCOUNTER 2023-04-12 10:35 | Outpatient (CLI) | payer MEDICARE ==
[2023-04-12 11:26] LABS: #Eosinphils 0.1 10x3/uL (0.0-0.5); #Monocytes 0.9 10x3/uL (0.0-1.1); #Neutrophils 4.1 10x3/uL (1.5-8.4); %Basophils 0.3 % (0.0-2.0); %Eosinophils 1.6 % (0.0-6.0); %Lymphocytes 23.6 % (18.0-47.0); %Monocytes 13.8 % (0.0-10.0); %Neutrophils 60.6 % (40.0-75.0); Hematocrit 40.7 % (38.8-50.0); Hemoglobin 14.1 g/dL (13.5-17.5); Mean Corpuscular HGB CONC 34.6 g/dL (32.0-36.0); Mean Corpuscular Hemoglobin 33.6 pg (27.0-33.0); Mean Corpuscular Volume 96.9 fl (81.2-95.1); Mean Platelet Volume 9.5 fl (7.4-10.4); Platelet Count 186 10x3/uL (150-450); RBC Distribution Width 13.6 % (11.5-14.5); White Blood Cell (WBC) Count 6.8 10x3/uL (3.5-10.5)
[2023-04-12 11:53] LABS: ALT (SGPT) 35 U/L (8-55); AST (SGOT) 29 U/L (5-34); Albumin 4.1 g/dL (3.4-4.8); Alkaline Phosphatase 58 U/L (40-110); Anion Gap 15 mmol/L (10-20); BUN (Urea Nitrogen) 21 mg/dL (8.4-25.7); Bilirubin, Total 0.8 mg/dL (0.2-1.2); Calc. Creatinine Clearance 0 mL/min (70-130); Calcium 9.4 mg/dL (7.8-10.44); Carbon Dioxide 26 mmol/L (23-31); Chloride 99 mmol/L (98-107); Estimated GFR 77; Globulin 2.2 g/dL (2.4-3.5); Glucose 104 mg/dL (83-110); Potassium 4.9 mmol/L (3.5-5.1); Protein, Total 6.3 g/dL (5.8-8.1); Sodium 135 mmol/L (136-145)
== END 2023-04-12 10:36 | disposition home or self-care (01) ==
LOC: LABBT 10:35
PROVIDERS: ATTEND Surgery
DX: Z01.812 Encounter for preprocedural laboratory examination (principal); K43.2 Incisional hernia without obstruction or gangrene
CPT/HCPCS: 80053; 85025

== ENCOUNTER 2023-04-14 07:03 | Observation (INO) | payer MEDICARE ==
[2023-04-12 11:18] VITALS: BMI 27.1
[2023-04-14] MEDS ORDERED: LevoFLOXacin 500 mg/D5W 100 ML BAG ONE (07:54)
[2023-04-14] MEDS ORDERED: Lidocaine 1% MPF 2 ML VIAL ONE (07:54)
[2023-04-14] MEDS ORDERED: fentaNYL PF 100 MCG/2 ML SYRINGE ONE (08:30)
[2023-04-14] MEDS ORDERED: Bupivacaine 0.25% HCL 30 ML VIAL ONE (08:32)
[2023-04-14] MEDS ORDERED: Lidocaine 2% PF 5 ML VIAL ONE ×2 (08:32)
[2023-04-14] MEDS ORDERED: EPINEPHrine 1 MG/ML AMP ONE (08:32)
[2023-04-14] MEDS ORDERED: SUGAMMADEX SODIUM 200 MG/2 ML VIAL ONE (09:13)
[2023-04-14] MEDS ORDERED: Lidocaine 1% PF 5 ML VIAL ONE (09:45)
[2023-04-14] MEDS ORDERED: Glycopyrrolate 0.2 MG/ML 5 ML SYRINGE ONE (09:45)
[2023-04-14] MEDS ORDERED: Ondansetron PF 4 MG/2 ML Vial ONE (09:45)
[2023-04-14] MEDS ORDERED: PROPOFOL 200 MG/20 ML VIAL ONE (09:45)
[2023-04-14] MEDS ORDERED: Dexamethasone 20 MG/5 ML VIAL ONE (09:45)
[2023-04-14] MEDS ORDERED: Bupivacaine PF 0.5% 30 ML VIAL ONE (09:45)
[2023-04-14] MEDS ORDERED: ePHEDrine Sulfate 50 MG/10 ML VIAL ONE (09:45)
[2023-04-14] MEDS ORDERED: Rocuronium Bromide 10 MG/ML (10ML VIAL) ONE (09:45)
[2023-04-14] MEDS ORDERED: Vasopressin 20 UNITS/ML VIAL ONE (10:01)
[2023-04-14] MEDS ORDERED: Ondansetron PF 4 MG/2 ML Vial IVP PRN ×2 (13:21→14:00)
[2023-04-14] MEDS ORDERED: Promethazine HCl 25 MG/ML VIAL IM PRN (13:21)
[2023-04-14] MEDS ORDERED: Calcium Carbonate 500 MG ChewTAB PO PRN (13:21)
[2023-04-14] MEDS ORDERED: Dextrose 5% in Water 1,000 ML IV PRN (13:21)
[2023-04-14] MEDS ORDERED: hydrALAZINE 20 MG/ML VIAL SLOW IVP PRN (13:21)
[2023-04-14] MEDS ORDERED: Glucagon 1 MG/ML KIT IM PRN (13:21)
[2023-04-14] MEDS ORDERED: Ipratropium/Albuterol 3 ML NEB NEB PRN (13:21)
[2023-04-14] MEDS ORDERED: Mag-Al 1200 mg/1200 mg/30 ML UDCUP PO PRN (13:21)
[2023-04-14] MEDS ORDERED: Dextrose 50% Abboject 50 ML SYRINGE SLOW IVP PRN (13:21)
[2023-04-14] MEDS ORDERED: Sodium Chloride 0.9% 1,000 ML IV SCH (13:30)
[2023-04-14] MEDS ORDERED: fentaNYL 50 mcg/mL 1 mL Vial ONE (13:41)
[2023-04-14] MEDS ORDERED: Ketorolac Tromethamine 30 MG/ML VIAL IVP SCH ×2 (13:45→18:00)
[2023-04-14] MEDS ORDERED: Naloxone HCl 0.4 mg/ml Vial IV PRN (14:00)
[2023-04-14] MEDS ORDERED: Morphine Sulfate 100 MG in Dextrose 5% in Water 98 ML IV SCH (14:00)
[2023-04-14] MEDS: Ketorolac Tromethamine 30 MG/ML VIAL IVP SCH (18:02)
[2023-04-14] MEDS: Famotidine 20 MG TAB PO SCH (20:16)
[2023-04-14] MEDS ORDERED: Famotidine/PF 20 mg/2ml Vial SLOW IVP SCH (21:00)
[2023-04-15] MEDS: Ketorolac Tromethamine 30 MG/ML VIAL IVP SCH ×2 (00:28→05:36)
[2023-04-15 04:45] VITALS: TEMP 98.1
[2023-04-15 06:54] LABS: #Monocytes 1.2 thou/uL (0.11-0.59); #Neutrophils 13.7 thou/uL (1.40-6.50); %Basophils 0.1 % (0.0-1.0); %Lymphocytes 5.4 % (21.0-51.0); %Monocytes 7.6 % (0.0-10.0); %Neutrophils 86.5 % (42.0-75.0); Hematocrit 42.2 % (42.0-52.0); Hemoglobin 14.2 g/dL (14.0-18.0); Mean Corpuscular HGB CONC 33.6 g/dL (32.0-36.0); Mean Corpuscular Hemoglobin 33.6 pg (27.0-31.0); Mean Corpuscular Volume 99.8 fl (78.0-98.0); Mean Platelet Volume 9.8 fL (7.4-10.4); Platelet Count 167 10x3/uL (130-400); RBC Distribution Width 13.5 % (11.5-14.5); Red Blood Cell (RBC) Count 4.23 mill/uL (4.70-6.10); White Blood Cell (WBC) Count 15.8 10x3/uL (4.8-10.8)
[2023-04-15 08:00] VITALS: BP 124/62
[2023-04-15] MEDS ORDERED: Morphine 4 MG/ML VIAL SLOW IVP PRN (08:28)
[2023-04-15] MEDS ORDERED: HYDROcodone/Acetaminophen 7.5/325 mg Tablet PO PRN (08:28)
[2023-04-15] MEDS: Famotidine 20 MG TAB PO SCH (10:00)
== END 2023-04-15 11:10 | disposition home or self-care (01) ==
LOC: SDC 07:03 → SURG A 15:30
PROVIDERS: ADMIT Surgery; ATTEND Surgery
PROC: 0WUF0JZ Supplement Abdominal Wall with Synthetic Substitute, Open Approach (ICD-10-PCS; principal; 2023-04-14)
DX: K43.2 Incisional hernia without obstruction or gangrene (principal); H91.90 Unspecified hearing loss, unspecified ear; C61 Malignant neoplasm of prostate; J30.81 Allergic rhinitis due to animal (cat) (dog) hair and dander; Z79.899 Other long term (current) drug therapy; Z88.0 Allergy status to penicillin
CPT/HCPCS: 49593; 85025; 93005; J3010; 36415; 93010; C1781; J0171; J1100; J1650; J1885; J1956; J2001; J2270; J2405; J2704; J7050; J7070; S0020

== ENCOUNTER 2023-06-01 06:30 | Day surgery (SDC) | payer MEDICARE ==
[2023-05-31 14:20] VITALS: BMI 26.0
[~2023-06-01 06:30] MED LIST changes: +Fluorouracil 100 MG, Enoxaparin 25 MG, EPINEPHrine 0.3 MG in Ophthalmic Irrigation Solu... IRR SCH; -Iopamidol-370 76% 500 ML 1 ML ONE
[2023-06-01] MEDS ORDERED: PHENYLephrine 2.5% Ophth Soln 15 ml Bottle ONE (06:42)
[2023-06-01] MEDS ORDERED: Cyclopentolate 1% Opth Drop 2 ML BOT ONE (06:42)
[2023-06-01] MEDS ORDERED: fentaNYL 50 mcg/mL 1 mL Vial ONE (06:43)
[2023-06-01] MEDS ORDERED: Midazolam HCl 2 mg/2 ml Vial ONE (06:43)
[2023-06-01] MEDS ORDERED: PHENYLEPHRINE-NS 100 MCG/ML 10 ML SYRINGE ONE (07:14)
[2023-06-01] MEDS ORDERED: Maxitrol 0.1% Opth Oint 3.5 GM TUBE ONE (07:14)
[2023-06-01] MEDS ORDERED: Ondansetron PF 4 MG/2 ML Vial ONE (07:14)
[2023-06-01] MEDS ORDERED: Lidocaine 4% PF 5 ML AMP ONE (07:14)
[2023-06-01] MEDS ORDERED: Indocyanine Green 25 MG/10 ML VIAL ONE (07:14)
[2023-06-01] MEDS ORDERED: PROPOFOL 200 MG/20 ML VIAL ONE (07:14)
[2023-06-01] MEDS ORDERED: Bupivacaine 0.75% 10 ML VIAL ONE (07:14)
[2023-06-01] MEDS ORDERED: Lidocaine 1% PF 5 ML VIAL ONE (07:14)
[2023-06-01] MEDS ORDERED: Glycopyrrolate 0.2 MG/ML 5 ML SYRINGE ONE (07:14)
[2023-06-01] MEDS ORDERED: CEFAZOLIN 1 GM VIAL ONE (07:14)
[2023-06-01] MEDS ORDERED: ePHEDrine Sulfate 50 MG/10 ML VIAL ONE (07:14)
[2023-06-01] MEDS ORDERED: Triamcinolone 40 MG/ML VIAL ONE (07:14)
== END 2023-06-01 10:10 | disposition home or self-care (01) ==
LOC: SDC 06:30
PROVIDERS: ATTEND Ophthalmology Retina Specialist
PROC: 08T43ZZ Resection of Right Vitreous, Percutaneous Approach (ICD-10-PCS; principal; 2023-06-01)
DX: H35.341 Macular cyst, hole, or pseudohole, right eye (principal)
CPT/HCPCS: 67025; 67041; J3010; J0171; J0690; J1650; J2250; J2405; J2704; J3301; J3490; J9190

== ENCOUNTER 2023-06-29 12:26 | Outpatient (CLI) | payer MEDICARE | END 2023-06-29 12:27 | disposition home or self-care (01) | LOC: SCSRAD 12:26 | PROVIDERS: ATTEND Family Medicine | DX: M54.50 Low back pain, unspecified (principal); M47.816 Spondylosis without myelopathy or radiculopathy, lumbar region | CPT/HCPCS: 72110 ==

== ENCOUNTER 2023-07-31 13:00 | Emergency (ER) | payer MEDICARE ==
[2023-07-31] MEDS ORDERED: LORazepam 2 MG/ML SYR.(CARPUJECT) ONE (15:33)
[2023-07-31] MEDS ORDERED: Ketorolac Tromethamine 30 MG/ML VIAL ONE (15:33)
[2023-07-31] MEDS ORDERED: fentaNYL 50 mcg/mL 1 mL Vial ONE (15:47)
== END 2023-07-31 16:30 | disposition home or self-care (01) ==
LOC: ERS 13:00
DX: M25.552 Pain in left hip (principal); M79.652 Pain in left thigh; I10 Essential (primary) hypertension
CPT/HCPCS: 73502; 73552; 73564; 96372; 99283; J2060; J3010; J1885

== ENCOUNTER 2023-08-25 09:17 | Outpatient (CLI) | payer MEDICARE | END 2023-08-25 09:18 | disposition home or self-care (01) | LOC: BICULT 09:17 | PROVIDERS: ATTEND Family Medicine | DX: E83.52 Hypercalcemia (principal); E07.9 Disorder of thyroid, unspecified | CPT/HCPCS: 76536 ==

== ENCOUNTER 2023-09-11 08:32 | Outpatient (CLI) | payer MEDICARE | END 2023-09-11 08:33 | disposition home or self-care (01) | LOC: NM 08:32 | PROVIDERS: ATTEND Family Medicine | DX: E83.52 Hypercalcemia (principal) | CPT/HCPCS: 78072 ==

== ENCOUNTER 2024-07-03 11:09 | Outpatient (CLI) | payer MEDICARE | END 2024-07-03 11:10 | disposition home or self-care (01) | LOC: RAD 11:09 | PROVIDERS: ATTEND Family Medicine | DX: J32.9 Chronic sinusitis, unspecified (principal) | CPT/HCPCS: 70220 ==

== ENCOUNTER 2024-10-03 11:21 | Outpatient (CLI) | payer MEDICARE | END 2024-10-03 11:22 | disposition home or self-care (01) | LOC: ULT 11:21 | PROVIDERS: ATTEND Family Medicine | DX: M79.89 Other specified soft tissue disorders (principal) ==